=== PATIENT | male | born 1970 | race Caucasian/White ===

== ENCOUNTER 2018-03-28 13:02 | Emergency (ER) | payer MEDICAID ==
[~2018-03-28] VITALS: Ht 182.9 cm; Wt 81.8 kg
[2018-03-28] MEDS ORDERED: CeFAZolin 1 GM/DEXTROSE 50 ML IV ONE (13:15)
[2018-03-28] MEDS ORDERED: PERTUSS(ACELL),DIPH,TET VAC/PF 0.5 ML VIAL IM ONE (13:15)
[2018-03-28 14:30] VITALS: BP 139/91
== END 2018-03-28 14:59 | disposition short-term general hospital (02) ==
LOC: EDBD 13:04 → EMS 13:04
DX: S81.812A Laceration without foreign body, left lower leg, initial encounter (principal); Z23 Encounter for immunization; W26.8XXA Contact with other sharp object(s), not elsewhere classified, initial encounter; Y93.89 Activity, other specified; Y92.89 Other specified places as the place of occurrence of the external cause; Y99.8 Other external cause status
CPT/HCPCS: 73590; 90471; 90715; 96365; 99285; J0690